=== PATIENT | female | born 1985 | race Two or more races ===

== ENCOUNTER 2024-11-10 17:43 | Emergency (ER) | payer SELFPAY ==
[2024-11-10 17:50] VITALS: BP 181/89; PULSE 73; PULSE 81; RESP 18; TEMP 37.1; O2SAT 98
--- NOTE | 2024-11-10 18:20 | XR_ITS ---
Examination: Right wrist 2 views TECHNIQUE: AP lateral right wrist 2 views Examination time: November 10, 20242046 hours INDICATIONS: Patient fell today with injury to the wrist, wrist pain. FINDINGS: No fracture or dislocation. No foreign body IMPRESSION: No fracture or dislocation
--- NOTE | 2024-11-10 18:20 | XR_ITS ---
Examination:Right hip AP, lateral, AP pelvis 3 views Technique: Hip AP lateral, AP pelvis, 3 views Exam date and time:November 10, 20242027 hours INDICATIONS: Patient fell today with into the right hip, right hip pain. FINDINGS: No right hip fracture or dislocation Left hip bones of the pelvis is intact IMPRESSION: No acute hip or pelvic fracture.
--- NOTE | 2024-11-10 18:20 | XR_ITS ---
Examination: Lumbar spine 3 views TECHNIQUE: AP lateral coned lateral lower lumbar spine 3 views Exam date and time: November 10, 2024, 2027 hours INDICATIONS: Patient fell today with injury to lower back, lower back pain. FINDINGS: Satisfactory alignment lumbar vertebral bodies No lumbar fracture No significant lumbar disc narrowing IMPRESSION: No lumbar fracture
--- NOTE | 2024-11-10 18:22 | PD.EDRME ---
Rapid Medical Screening Exam RME Arrival date/time: 11/10/24 17:43 39 year old female present to ED for c/o back, hip, and wrist injury s/p fall today I have greeted and performed a focused initial assessment of this patient. A comprehensive ED assessment and evaluation of the patient, analysis of all test results, and completion of the medical decision making process will be conducted by additional ED providers. Vital signs: Vital Signs Temperature 98.7 F 11/10/24 17:50 Pulse Rate 73 11/10/24 17:50 Respiratory Rate 18 11/10/24 17:50 Blood Pressure 181/89 H 11/10/24 17:50 Pulse Oximetry (%) 98 11/10/24 17:50 Oxygen Delivery Method Room Air 11/10/24 17:50
[2024-11-10] MEDS: ACETAMINOPHEN 325 MG TABLET 650 MG PO (18:40)
[2024-11-10 20:19] LABS: HCG Qualitative,Urine Negative
--- NOTE | 2024-11-10 20:20 | PD.EDADULT ---
ED General RME/HPI General Chief complaint: Fall Stated complaint: FALL Time Seen by Provider: 11/10/24 18:38 Arrival date/time: 11/10/24 17:43 CC: Low back pain right wrist pain HPI patient fell while in a store slipping on water landing on her buttocks, the patient denies striking her head or neck denies any loss of consciousness. No OTC medications taken. The patient denies any bowel or bladder symptoms saddle anesthesia, numbness weakness or tingling in the lower extremities. Patient is awake alert oriented nontoxic-appearing and not in any acute distress. RME / HPI RME / HPI narrative: 11/10/24 17:43 39 year old female present to ED for c/o back, hip, and wrist injury s/p fall today I have greeted and performed a focused initial assessment of this patient. A comprehensive ED assessment and evaluation of the patient, analysis of all test results, and completion of the medical decision making process will be conducted by additional ED providers. Related Data Previous Rx's ?Medication ?Instructions ?Recorded meloxicam 7.5 mg tablet 7.5 mg PO QDAY #10 tabs 11/10/24 Allergies Allergy/AdvReac Type Severity Reaction Status Date / Time No Known Allergies Allergy Verified 11/10/24 17:58 Review of Systems Review of Systems Narrative Review of Systems: GEN: No fever, no chills, no weight loss EYES: No discharge, no visual changes, no pain HEENT: No ear pain, no congestion, no sore throat PULM: No shortness of breath, no cough, no congestion CV: No chest pain, no dyspnea on exertion, no palpitations GI: No nausea, no vomiting, no diarrhea, no pain, no constipation : No frequency, no urgency, no dysuria MUSC/SKEL: + joint pain, + back pain SKIN: No rash PSYCH: No hallucinations, no depression HEME/LYMPH: No easy bleeding or bruising tendencies NEURO: No weakness, no headache Past Medical History Social History SMOKING STATUS: Never smoker ED Exam Narrative Physical exam: [General: Not in any acute distress Head normocephalic HEENT: Eyes pupils are PERRLA EOMs are intact nose no rhinorrhea mouth pink moist membranes uvula is midline swallow symmetrical phonation is normal all other subsystems of HEENT are within acceptable limits Neck is supple nontender, cervical spine is negative for tenderness on palpation full range of motion flexion extension and rotation. Chest equal chest rise nontender to palpation Respiratory: Clear to auscultation no wheezes crackles or rubs CV: Rate rhythm is regular no murmurs rubs or clicks Abdomen is soft nontender no masses positive bowel sounds all 4 quadrants Back: Lumbar paraspinal tenderness bilaterally no spinous process tenderness with palpation no or lower thoracic paraspinal tenderness with palpation. No tenderness with palpation of the sacrum. Skin: Intact no petechiae rash induration ulceration or crepitus Extremities: Right wrist, full range of motion but tenderness to palpation in the medial wrist attenuation to the hand. Full range of motion of all the digits flexion extension rotation of the wrist. No significant edema erythema or abrasions. Moving all other extremities against resistance cap refill less than 2 seconds neurosensory intact Neuro: Awake alert oriented x3 Glascow coma 15 no focal deficits] Course Quality Measures none Orders Category Date Time Status XR hip RT w pelvis 2-3V Stat Exams 11/10/24 18:20 Completed XR lumbar spine 2-3V Stat Exams 11/10/24 18:20 Completed XR wrist RT 2V Stat Exams 11/10/24 18:20 Completed HCG Qualitative,Urine Stat Lab 11/10/24 20:08 Completed Acetaminophen Tab [Tylenol Tab] Med 11/10/24 18:21 Discontinued 650 mg PO X1 ONE Vital Signs Vital signs: Vital Signs Temperature 98.7 F 11/10/24 17:50 Pulse Rate 73 11/10/24 17:50 Respiratory Rate 18 11/10/24 17:50 Blood Pressure 181/89 H 11/10/24 17:50 Pulse Oximetry (%) 98 11/10/24 17:50 Oxygen Delivery Method Room Air 11/10/24 17:50 [facility] Patient data External records reviewed:: [facility] [place] previous records Clinical information provided by:: patient Social determinants that could affect healthcare access:: none Patient has the following chronic illnesses:: None How is presenting disease/condition affected by chronic disease/condition?: uneffected by Evaluation data The following diagnostics were reviewed and interpreted by me:: lab results and radiology exam(s) Lab and/or radiology exams considered but not ordered:: Urine is negative. Wrist hip and lumbar spine x-rays interpreted by me read by radiology negative for any acute finding requires emergent or immediate intervention. Interpretation Summary: Fall low back contusion wrist contusion Medications Medications considered but not ordered:: None Medication administrations:: Medication Administration History Discontinued Medications Acetaminophen (Acetaminophen 325 Mg Tablet) 650 mg PO X1 ONE Stop: 11/10/24 18:22 Last Admin: 11/10/24 18:40 Dose: 650 mg Documented By: HARMONY None Consultations Consultation(s) initiated? (list below): No Diagnosis Differential Diagnosis ED Complaint MDM: Back fracture wrist fracture hip fracture Most likely diagnosis given after review of the tests above:: Wrist contusion lumbar contusion hip contusion Admission Indicated Admission indicated?: not indicated Explain why admission is indicated or not indicated:: Stable for outpatient follow-up Admission Request Was there a request for admission?: No Disposition Plan Disposition Plan: Discharge Discharge Attestation Discharge Attestation: The patient and all family members were given an opportunity to ask questions and understood the discharge instructions. Discharge instructions specifically effects, indications for sooner follow up or return to the emergency department, and the expected course of current diagnosis. Patient condition: Stable Medical Decision Making Differential Diagnosis Differential Diagnosis: Back fracture wrist fracture hip fracture Lab Data Labs: Lab Results 11/10/24 Range/Units 20:08 Urine HCG, Qual Negative Discharge Plan Plan Patient Disposition: HOME (Self Care) Patient condition on transfer: Stable Prescriptions/Referrals Prescriptions/Med Rec: New meloxicam 7.5 mg tablet 7.5 mg PO QDAY Qty: 10 0RF Referrals: Jairo Gutierres MD [Physician] - In 1 week No Primary/Family,Physician [Primary Care Provider] - In 1 week Problem List Clinical Impression: Contusion of right wrist, Lumbar contusion Patient/Caregiver Discharge Instructions Education Materials: ED Back Contusion, ED Contusion, Upper Extremity Print Language: Kazakh Stand Alone Forms: Emili Award Info., Work/School Release, Patient Portal Info Letter MARIBELL/OSIRIS Supervising Physician MARIBELL/OSIRIS Supervising Physician: Hakeem Gay ENP
[2024-11-10 21:23] VITALS: BP 150/86; PULSE 62; RESP 16; O2SAT 99
== END 2024-11-10 21:24 | disposition home or self-care (01) ==
PROVIDERS: Physician Assistant; Emergency Provider Emergency Medicine
DX: S30.0XXA Contusion of lower back and pelvis, initial encounter (principal); S60.211A Contusion of right wrist, initial encounter; S79.911A Unspecified injury of right hip, initial encounter; W01.0XXA Fall on same level from slipping, tripping and stumbling without subsequent striking against object, initial encounter
CPT/HCPCS: 72100; 73100; 73502; 81025; 99283; A9270